=== PATIENT | male | born 1995 | race Caucasian/White ===

== ENCOUNTER 2019-12-29 15:39 | Emergency (ER) | payer OTHER ==
[~2019-12-29] VITALS: Ht 167.6 cm; Wt 86.2 kg
[2019-12-29 16:06] VITALS: Ht 167.6 cm; Wt 86.2 kg
[2019-12-29 20:22] VITALS: BP 115/87
== END 2019-12-29 20:22 | disposition home or self-care (01) ==
LOC: ED 15:39
DX: T23.202A Burn of second degree of left hand, unspecified site, initial encounter (principal); Z88.0 Allergy status to penicillin; W29.8XXA Contact with other powered hand tools and household machinery, initial encounter; Y93.9 Activity, unspecified; Y92.89 Other specified places as the place of occurrence of the external cause; Y99.0 Civilian activity done for income or pay